=== PATIENT | female | born 1985 | race Caucasian/White ===

== ENCOUNTER 2019-09-15 08:00 | Outpatient (CLI) | payer OTHER ==
[2019-09-15 22:02] LABS: TRICHOMONAS VAGINALIS DNA NEGATIVE (NEGATIVE)
== END 2019-09-15 23:59 | disposition home or self-care (01) ==
LOC: LAB.R 08:00
PROVIDERS: ATTEND Obstetrics & Gynecology
DX: R85.612 Low grade squamous intraepithelial lesion on cytologic smear of anus (LGSIL) (principal)
CPT/HCPCS: 87491; 87591; 87661

== ENCOUNTER 2021-06-01 08:00 | Outpatient (CLI) | payer OTHER ==
[2021-06-01 12:30] LABS: BILIRUBIN,URINE NEGATIVE (NEGATIVE); GLUCOSE, URINE (UA) NEGATIVE (NEGATIVE); KETONES,URINE (UA) NEGATIVE (NEGATIVE); LEUKOCYTE ESTERASE, URINE NEGATIVE (NEGATIVE); NITRITE,URINE POSITIVE (NEGATIVE); OCCULT BLOOD,URINE NEGATIVE (NEGATIVE); PH,URINE 5.5 PH (5.0-7.5); PROTEIN,URINE NEGATIVE (NEGATIVE); UROBILINOGEN,URINE 0.2 (NORMAL) E.U./dL (NORMAL)
[2021-06-01 12:31] LABS: BASOPHILS % (AUTO) 0.6 %; EOSINOPHILS # (AUTO) 0.2 10^3/uL (0.0-0.7); EOSINOPHILS % (AUTO) 3.9 %; HCT - HEMATOCRIT 41.6 % (37.0-47.0); HGB - HEMOGLOBIN 14.3 g/dL (12.0-16.0); LYMPHOCYTES # (AUTO) 1.8 10^3/uL (1.5-3.5); LYMPHOCYTES % (AUTO) 32.9 %; MEAN CORPUSCULAR HEMOGLOBIN 30.5 pg (27.0-31.0); MEAN CORPUSCULAR HGB CONC 34.4 g/dL (32.0-36.0); MEAN CORPUSCULAR VOLUME 88.7 fL (81.0-99.0); MEAN PLATELET VOLUME 10.5 fL (7.9-10.8); MONOCYTES # (AUTO) 0.4 10^3/uL (0.0-1.0); MONOCYTES % (AUTO) 7.1 %; NEUTROPHILS % (AUTO) 55.3 %; PLT - PLATELET COUNT 227 10^3/uL (130-450); RED BLOOD COUNT 4.69 10^6/uL (4.20-5.40); RED CELL DISTRIBUTION WIDTH 11.6 % (12.0-15.0); WHITE BLOOD COUNT 5.4 x10^3/uL (4.8-10.8)
[2021-06-01 12:38] LABS: CLARITY,URINE CLOUDY (CLEAR); WBC,URINE 0-3 /HPF (0-5)
[2021-06-01 12:39] LABS: AMORPHOUS SEDIMENT,UR Moderate /LPF; BACTERIA,URINE Many /HPF (None Seen); RBC,URINE None Seen /HPF (0-5); SQUAMOUS EPITHELIAL CELL,UR RARE Squamous (<= Few)
[2021-06-01 12:58] LABS: THYROID STIMULATING HORMONE 2.26 uIU/mL (0.34-5.60)
[2021-06-01 13:00] LABS: ALBUMIN 4.6 g/dL (3.2-5.5); ALBUMIN/GLOBULIN RATIO 1.7 (1.0-2.2); BILIRUBIN,TOTAL 0.9 mg/dL (0.2-1.0); CREATININE 0.7 mg/dL (0.4-1.0); POTASSIUM 3.9 mmol/L (3.5-5.0); TOTAL PROTEIN 7.3 g/dL (6.7-8.2)
== END 2021-06-01 23:59 | disposition home or self-care (01) ==
LOC: LAB.WCP 08:00
PROVIDERS: ATTEND Physician Assistant
DX: Z00.00 Encounter for general adult medical examination without abnormal findings (principal)
CPT/HCPCS: 36415; 80050; 81001; 87077; 87086; 87181

== ENCOUNTER 2021-08-31 18:23 | Emergency (ER) | payer OTHER ==
[2021-08-31 18:47] LABS: BASOPHILS % (AUTO) 0.4 %; EOSINOPHILS # (AUTO) 0.2 10^3/uL (0.0-0.7); EOSINOPHILS % (AUTO) 1.7 %; HCT - HEMATOCRIT 38.4 % (37.0-47.0); HGB - HEMOGLOBIN 13.5 g/dL (12.0-16.0); LYMPHOCYTES # (AUTO) 2.3 10^3/uL (1.5-3.5); LYMPHOCYTES % (AUTO) 20.5 %; MEAN CORPUSCULAR HEMOGLOBIN 30.8 pg (27.0-31.0); MEAN CORPUSCULAR HGB CONC 35.2 g/dL (32.0-36.0); MEAN CORPUSCULAR VOLUME 87.7 fL (81.0-99.0); MONOCYTES # (AUTO) 0.7 10^3/uL (0.0-1.0); MONOCYTES % (AUTO) 6.3 %; NEUTROPHILS % (AUTO) 70.7 %; PLT - PLATELET COUNT 258 10^3/uL (130-450); RED BLOOD COUNT 4.38 10^6/uL (4.20-5.40); RED CELL DISTRIBUTION WIDTH 11.8 % (12.0-15.0); WHITE BLOOD COUNT 11.3 x10^3/uL (4.8-10.8)
[2021-08-31 18:52] LABS: BILIRUBIN,URINE NEGATIVE (NEGATIVE); GLUCOSE, URINE (UA) NEGATIVE (NEGATIVE); KETONES,URINE (UA) NEGATIVE (NEGATIVE); LEUKOCYTE ESTERASE, URINE NEGATIVE (NEGATIVE); NITRITE,URINE NEGATIVE (NEGATIVE); OCCULT BLOOD,URINE NEGATIVE (NEGATIVE); PH,URINE 7.5 PH (5.0-7.5); PROTEIN,URINE NEGATIVE (NEGATIVE); UROBILINOGEN,URINE 0.2 (NORMAL) E.U./dL (NORMAL)
[2021-08-31 18:55] LABS: CLARITY,URINE CLEAR (CLEAR)
[2021-08-31 18:55] LABS: CREATININE 0.5 mg/dL (0.4-1.0); POTASSIUM 3.5 mmol/L (3.5-5.0)
--- NOTE | 2021-08-31 18:59 | ED Physician Documentation ---
History of Present Illness - Stated complaint Stated Complaint: BLEEDING +PREG - Chief complaint Chief Complaint: Abd Pain - Additonal information Additional information: 36-year-old female presents emergency department for evaluation of vaginal bleeding and cramping in the first trimester . LMP 07/10/2021. G6, . She has not yet established with an OB. Previous pregnancies were delivered vaginally. No fevers. No nausea or vomiting. No dysuria urgency or frequency. Not vaccinated for COVID-19. She thinks she has a hx of a remote COVID infection Review of Systems Constitutional: denies: Fever, Chills Eyes: reports: Reviewed and negative Nose: reports: Reviewed and negative Throat: reports: Reviewed and negative Cardiac: reports: Reviewed and negative Respiratory: reports: Reviewed and negative GI: reports: Reviewed and negative : reports: Reviewed and negative Skin: reports: Reviewed and negative Musculoskeletal: reports: Reviewed and negative PD ED PE NORMAL - General General: Alert and oriented X 3, No acute distress - HEENT HEENT: Atraumatic - Neck Neck: Supple, no meningeal sign, No adenopathy - Cardiac Cardiac: RRR, No murmur - Respiratory Respiratory: No respiratory distress, Clear bilaterally - Abdomen Abdomen: Normal bowel sounds, Soft. No: Non tender - Back Back: No CVA TTP - Derm Derm: Normal color, Warm and dry - Extremities Extremities: No deformity, No tenderness to palpate, Normal ROM s pain Results - Vitals Vitals: Vital Signs - 24 hr 08/31/21 08/31/21 18:27 20:10 Temperature 36.8 C Heart Rate 79 60 Respiratory 14 14 Rate Blood Pressure 144/74 H 111/69 O2 Saturation 100 98 Oxygen O2 Source Room air - Labs Labs: Laboratory Tests 08/31/21 08/31/21 08/31/21 18:35 18:37 18:37 WBC 11.3 H RBC 4.38 Hgb 13.5 Hct 38.4 MCV 87.7 MCH 30.8 MCHC 35.2 RDW 11.8 L Plt Count 258 MPV 10.0 Neut # (Auto) 8.0 H Lymph # (Auto) 2.3 [place] # (Auto) 0.7 Eos # (Auto) 0.2 Baso # (Auto) 0.0 Absolute Nucleated RBC 0.00 Nucleated RBC % 0.0 Sodium Potassium Chloride Carbon Dioxide Anion Gap BUN Creatinine Estimated GFR (MDRD) Glucose Calcium HCG, Quant Urine Color YELLOW Urine Clarity CLEAR Urine pH 7.5 Ur Specific [place] 1.020 Urine Protein NEGATIVE Urine Glucose (UA) NEGATIVE Urine Ketones NEGATIVE Urine Occult Blood NEGATIVE Urine Nitrite NEGATIVE Urine Bilirubin NEGATIVE Urine Urobilinogen 0.2 (NORMAL) Ur Leukocyte Esterase NEGATIVE Ur Microscopic Review NOT INDICATED Urine Culture Comments NOT INDICATED Blood Type O POSITIVE 08/31/21 08/31/21 18:37 18:37 WBC RBC Hgb Hct MCV MCH MCHC RDW Plt Count MPV Neut # (Auto) Lymph # (Auto) [place] # (Auto) Eos # (Auto) Baso # (Auto) Absolute Nucleated RBC Nucleated RBC % Sodium 135 Potassium 3.5 Chloride 99 L Carbon Dioxide 28 Anion Gap 8.0 BUN 11 Creatinine 0.5 Estimated GFR (MDRD) 140 Glucose 89 Calcium 9.0 HCG, Quant 865195.00 Urine Color Urine Clarity Urine pH Ur Specific [place] Urine Protein Urine Glucose (UA) Urine Ketones Urine Occult Blood Urine Nitrite Urine Bilirubin Urine Urobilinogen Ur Leukocyte Esterase Ur Microscopic Review Urine Culture Comments Blood Type - Rads (name of study) OBUS Radiology: Final report received (IUP with positive heart rate measuring at approximately 6 weeks 6 days. Subchorionic hemorrhage measuring 1.8 x 1.7 x 2 cm. Left corpus luteal cyst) PD MEDICAL DECISION MAKING - ED course Complexity details: reviewed results, re-evaluated patient, considered differential, d/w patient, d/w family ED course: Well-appearing 36-year-old female who is in her first trimester of presents the emergency department for lower pelvic pain, cramping and vaginal bleeding. Symptoms began today. G6, . lmp 07/10/21 Screening labs without acute worrisome findings. No bacteriuria. She is Rh+. She has a healthy quant greater than 100,000. OB ultrasound reveals a live IUP 6 weeks 6 days with associated small subchorionic hemorrhage. No findings to suggest ectopic or heterotopic . Patient is hemodynamically stable. She is attempting to establish with OB. Discussed routine return precautions for severe vaginal bleeding, tachycardia fevers uncontrolled vomiting. Departure - Departure Disposition: 01 Home, Self Care Clinical Impression: Threatened Subchorionic hematoma in first trimester Qualifiers: Fetus number: single or unspecified fetus Qualified Code(s): O41.8X10 - Other specified disorders of amniotic fluid and membranes, first trimester, not applicable or unspecified; O46.8X1 - Other antepartum hemorrhage, first trimester Condition: Stable Record reviewed to determine appropriate education?: Yes Instructions: ED Miscarriage Poss Comments: Haley was seen today in the emergency department for vaginal bleeding and spotting in the first trimester of your . Your screening labs are all essentially normal. The ultrasound reveals that you are about 6 weeks 6 days . Fetus has a good heart rate. You do have a small subchorionic hemorrhage. As we discussed at the bedside this is where the placenta can begin to tear away from the uterine wall. This does put you at risk for a miscarriage however many women who have subchorionic hemorrhages will go on to have a normal . It is important you continue to establish with an OB. I do recommend avoidance of any sexual activity until cleared by your OB however routine daily activities should not be limited. If you develop a racing heart rate, have any fainting episodes, severe vaginal bleeding or saturating a menstrual pad every hour for 6 or more hours then p susanjayleen return immediately to the ER for second evaluation.
[2021-08-31 20:37] VITALS: BP 119/72
--- NOTE | 2021-08-31 21:18 | Ultrasound Report ---
PROCEDURE: OB First Trimester w/TV INDICATIONS: vaginal bleeding; llq 1st trimester OUTSIDE/PRIOR DATING DATA: Last menstrual period (LMP): 07/10/2021. LMP-based estimated date of delivery (DG): 04/16/2022. First dating scan (date and location): 08/31/2021. Estimated date of delivery (DG) from first dating scan: 04/20/2022. The below data below was generated using the ultrasound DG of 04/20/2022 TECHNIQUE: Real-time scanning was performed of the fetus and maternal pelvic organs, with image documentation. Endovaginal scanning was also performed to better visualize the fetus and maternal ovaries. COMPARISON: None. FINDINGS: Embryo: Jette-rump length measuring 0.86 cm. Estimated gestational age 6 weeks 6 days. Heart rate: 136 bpm. You've sac is seen. Subchorionic hemorrhage measuring 2 x 1.8 x 1.7 cm. Measurement variability in dating: +/- 4 weeks by LMP, +/- 7 days by mean sac diameter (use before 6 weeks gestation if crown-rump length not able to be measured), +/- 5 days by crown-rump length (6-12 weeks gestation). Maternal organs: Ovaries within normal limits. Left corpus luteum. IMPRESSION: 1. [place] living intrauterine at 6 weeks 6 days based on today's crown-rump length. 2. Small perigestational hemorrhage. Reviewed by: Javier Black MD on 08/31/2021 9:16 PM PDT Approved by: Javier Black MD on 08/31/2021 9:16 PM PDT Station ID: [id number]
== END 2021-08-31 20:38 | disposition home or self-care (01) ==
LOC: ED 18:23
DX: O41.8X10 Other specified disorders of amniotic fluid and membranes, first trimester, not applicable or unspecified (principal); O46.8X1 Other antepartum hemorrhage, first trimester; Z3A.01 Less than 8 weeks gestation of pregnancy
CPT/HCPCS: 36415; 80048; 81001; 81003; 84702; 85025; 86900; 86901; 87086; 99282; 99284

== ENCOUNTER 2022-10-03 09:22 | Outpatient (CLI) | payer OTHER ==
[2022-10-03 11:55] LABS: BASOPHILS % (AUTO) 0.5 %; EOSINOPHILS # (AUTO) 0.3 10^3/uL (0.0-0.7); HCT - HEMATOCRIT 40.2 % (37.0-47.0); HGB - HEMOGLOBIN 13.7 g/dL (12.0-16.0); LYMPHOCYTES # (AUTO) 1.5 10^3/uL (1.5-3.5); LYMPHOCYTES % (AUTO) 24.4 %; MEAN CORPUSCULAR HEMOGLOBIN 30.6 pg (27.0-31.0); MEAN CORPUSCULAR HGB CONC 34.1 g/dL (32.0-36.0); MEAN CORPUSCULAR VOLUME 89.9 fL (81.0-99.0); MEAN PLATELET VOLUME 10.6 fL (7.9-10.8); MONOCYTES # (AUTO) 0.4 10^3/uL (0.0-1.0); MONOCYTES % (AUTO) 6.4 %; NEUTROPHILS # (AUTO) 3.9 10^3/uL (1.5-6.6); NEUTROPHILS % (AUTO) 63.4 %; PLT - PLATELET COUNT 248 10^3/uL (130-450); RED BLOOD COUNT 4.47 10^6/uL (4.20-5.40); WHITE BLOOD COUNT 6.2 x10^3/uL (4.8-10.8)
[2022-10-03 12:28] LABS: THYROID STIMULATING HORMONE 1.07 uIU/mL (0.34-5.60)
[2022-10-03 12:35] LABS: FERRITIN 23.8 ng/mL (11.0-306.8)
[2022-10-03 12:38] LABS: FOLATE 14.57 ng/mL (5.90 - >24.8)
[2022-10-03 15:14] LABS: % IRON SATURATION 44 % (20-50); ALBUMIN 4.6 g/dL (3.2-5.5); ALBUMIN/GLOBULIN RATIO 1.5 (1.0-2.2); ALKALINE PHOSPHATASE 41 IU/L (42-121); ALT ALANINE AMINOTRANSFERASE 19 IU/L (10-60); AST ASPARTATE AMINOTRANSFERASE 19 IU/L (10-42); BILIRUBIN,TOTAL 0.8 mg/dL (0.2-1.0); BUN - BLOOD UREA NITROGEN 19 mg/dL (6-20); CALCIUM 8.7 mg/dL (8.5-10.3); CHOL/HDL RATIO 3.7 (<4.4); CHOLESTEROL 141 mg/dL; CREATININE 0.6 mg/dL (0.4-1.0); GFR - MDRD 113 (>89); GLUCOSE 90 mg/dL (70-100); HDL CHOLESTEROL 38 mg/dL; IRON 176 ug/dL (28-170); TOTAL IRON BINDING CAPACITY 402 ug/dL (250-450); TOTAL PROTEIN 7.7 g/dL (6.7-8.2); TRANSFERRIN 287 mg/dL (192-382); TRIGLYCERIDES 38 mg/dL
[2022-10-03 15:21] LABS: CARBON DIOXIDE - CO2 26 mmol/L (21-32); CHLORIDE 97 mmol/L (101-111); POTASSIUM 3.7 mmol/L (3.5-5.0); SODIUM 139 mmol/L (135-145)
== END 2022-10-03 09:23 | disposition home or self-care (01) ==
LOC: LAB.N 09:22
PROVIDERS: ATTEND Physician Assistant
DX: R53.83 Other fatigue (principal); Z13.9 Encounter for screening, unspecified; Z13.220 Encounter for screening for lipoid disorders; Z13.29 Encounter for screening for other suspected endocrine disorder
CPT/HCPCS: 36415; 80050; 80061; 82607; 82728; 82746; 83540; 83721; 84466

== ENCOUNTER 2024-01-06 18:49 | Outpatient (CLI) | payer OTHER | END 2024-01-06 18:50 | disposition critical access hospital (66) | LOC: EMS 18:49 | DX: I10 Essential (primary) hypertension (principal) | CPT/HCPCS: A0425; A0427 ==

== ENCOUNTER 2024-01-06 19:15 | Emergency (ER) | payer OTHER ==
--- NOTE | 2024-01-06 19:34 | ED Physician Documentation ---
History of Present Illness - Stated complaint Stated Complaint: HAND TINGLING - Chief complaint Chief Complaint: General - Additonal information Additional information: 38-year-old female with history of ADHD on Concerta presents with palpitations. She states she has had poor appetite in the last few days in the setting of stress at home, due to breaking up with her partner. She has not been eating well. She has had tingling in bilateral hands along with cramping of her thumbs bilaterally. In the last few hours, she also an episode of her heart racing. No lightheadedness or syncope. No history of syncope previously. No family history of syncope or sudden cardiac . No fevers, chills, cough, chest or back or abdominal or flank pain, shortness of breath, leg swelling or leg pain, focal numbness or weakness, visual or hearing changes, vomiting, diarrhea, urinary symptoms, or other changes. She is on schedule with her menstrual cycle. No other medications beyond Concerta, which has not been changed in dosing. No other new concerns. History clarified from triage. ROS Constitutional: no fever, no chills Eyes: no visual disturbance, no discharge Ears, Nose, Mouth, Throat: no rhinorrhea, no sore throat Cardiovascular: no chest pain, + palpitations Respiratory: no cough, no shortness of breath Gastrointestinal: no abdominal pain, no vomiting, no diarrhea Genitourinary: no dysuria, no hematuria Musculoskeletal: no back pain, no neck stiffness Skin: no rash, no wound Neurological: no focal weakness, no focal numbness PD PAST MEDICAL HISTORY - Past Medical History Past Medical History: Yes - Past Surgical History Past Surgical History: No - Present Medications Home Medications: Ambulatory Orders Medication Instructions Recorded Confirmed Magnesium Oxide 400 mg PO DAILY #2 tablet 01/06/24 Potassium Chloride 40 meq PO DAILY 2 Days #4 tab 01/06/24 - Allergies Allergies/Adverse Reactions: Allergies Allergy/AdvReac Type Severity Reaction Status Date / Time No Known Drug Allergies Allergy Verified 01/06/24 19:26 - Social History Does the pt smoke?: No Smoking Status: Never smoker Does the pt drink ETOH?: Yes - Immunizations Immunizations are current?: Yes - POLST Patient has POLST: No PD ED PE NORMAL - Free text exam Free text exam: Const: no acute distress, non toxic appearing; calm, conversant, pleasant Eyes: PERRLA, EOMI ENT: mucous membranes moist Neck: supple, non-tender Resp: no respiratory distress, clear to auscultation bilaterally Card: regular rate and rhythm, no murmurs Abd: non tender diffusely, no rigidity or rebound or guarding Back: no T or L spine tenderness, no CVA tenderness bilaterally Extrem: no deformities, no swelling bilateral lower extremities, 2+ distal pulses all extremities Neuro: ANOx4, shearing machine feeder 2-12 intact, intact sensation and strength all extremities, normal coordination, no clonus BLE Skin: no rash, warm and dry Results - Vitals Vitals: Vital Signs - 24 hr 01/06/24 01/06/24 01/06/24 19:27 19:44 20:48 Temperature 36.3 C L Heart Rate 79 73 81 Respiratory 16 16 16 Rate Blood Pressure 168/96 H 144/96 H 142/96 H O2 Saturation 99 100 99 Oxygen O2 Source Room air - EKG (time done) EKG NSR without acute ischemia or immediately concerning interval prolongation on my review. No WPW, long QT, [place], HOCM. Partial IVCD noted. EKG releavant findings:: EKG personally interpreted by author of this note. Relevant findings are: - Labs Labs: Laboratory Tests 01/06/24 01/06/24 19:40 19:40 WBC 7.3 RBC 4.56 Hgb 13.9 Hct 40.8 MCV 89.5 MCH 30.5 MCHC 34.1 RDW 11.5 L Plt Count 302 MPV 9.3 Neut # (Auto) 4.8 Lymph # (Auto) 1.8 [place] # (Auto) 0.5 Eos # (Auto) 0.1 Baso # (Auto) 0.0 Absolute Nucleated RBC 0.00 Nucleated RBC % 0.0 Sodium 135 Potassium 3.2 L Chloride 100 L Carbon Dioxide 26 Anion Gap 9.0 BUN 14 Creatinine 0.7 Estimated GFR (MDRD) 94 Glucose 126 H Calcium 9.0 Magnesium 1.4 L Total Bilirubin 0.6 AST 21 ALT 23 Alkaline Phosphatase 38 L Total Protein 7.2 Albumin 4.6 Globulin 2.6 Albumin/Globulin Ratio 1.8 TSH 1.80 Serum HCG, Qual NEGATIVE PD Medical Decision Making - ED course ED course: This patients presentation is most suggestive of electrolyte derangements leading to tingling in bilateral hands, intermittent cramping, benign palpitations such as PVCs. She is well-appearing, currently comfortable, fully neurovascularly intact, with no pain or shortness of breath or clear infectious signs. Poor p.o. intake could be contributory. Thyroid derangement is less likely. Malignant dysrhythmia such as ventricular tachycardia is extremely unlikely clinically. I am giving fluids will obtain EKG, CBC, CMP, magnesium, TSH, hCG and closely reassessing. Labs notable for mild hypokalemia and hypomagnesemia. TSH WNL. HCG negative. Remainder of labs overall reassuring. EKG reassuring as noted. Patient had very reassuring remainder of her ER course. Symptoms improved. She does note mild intermittent headache, without sudden or severe features. No other new concerns. I offered tylenol, which she declined. I repeated her full neurovascular exam with nurse at bedside as well, and she is fully neurovascularly intact. Her repeat neurologic exam follows: Neuro: ANOx4. shearing machine feeder 2-12 intact. No rotatory or vertical nystagmus. Normal tone all extremities. Sensation intact to light touch all extremities. 5/5 motor strength all extremities. No pronator drift. Negative Romberg. Normal gait. No dysarthria. No neglect. Grossly normal cognition. This presentation is not consistent with stroke, focal neurologic deficit or SAH. Rather, her presentation and workup are highly consistent with electrolyte derangements. In addition to giving her 40 millequivalents of potassium chloride and 400 mg of magnesium oxide p.o. here, I am prescribing her 2 additional days of 40 potassium chloride and 400 magnesium oxide daily. She understands plan, return precautions, and outpatient repeat labs, stating she has a primary doctor. No other new concerns. She appears well. Results of work up today were discussed with the patient. Patient ambulatory and tolerating PO. Repeat exams and vital signs reassuring; BP is elevated in setting of intermittent anxiety but is suitable for discharge with outpatient follow up, without clinical evidence of hypertensive emergency here. Patient questions answered and plan reviewed. Strong return precautions given. Patient discharged. Departure - Departure Disposition: 01 Home, Self Care Clinical Impression: Palpitations, Hypokalemia Condition: Good Instructions: Hypokalemia Dc Prescriptions: Magnesium Oxide 400 mg PO DAILY #2 tablet Potassium Chloride 40 meq PO DAILY 2 Days #4 tab Comments: It was a pleasure taking care of you today. It is important to fully read and understand the below. Please ask us if you have any questions. We think the most likely cause of your symptoms may be low potassium and magnesi um. Please take potassium and magnesium as prescribed and see a doctor within 3- 5 days to be reassessed. No tests or assessments are perfect, and your condition could roving changer time. If your symptoms change or worsen, it is very important you immediately seek medical care. If you have any new or worsening pain, lightheadedness or passing out, feeling your heart beating funny, shortness of breath, fever, vomiting, confusion, numbness, weakness, or anything else that concerns you, please immediately seek medical care. If you have been prescribed any medications: please read the drug package inserts on how to properly use the medication and any potential side effects. If you had labs (blood tests) or imaging (CT scan or x-rays) done during your visit: please follow up on the results of these with your primary care doctor, as discussed. In addition, please know the results we received today may be preliminary. Our usual practice is to follow up on tests within a few days of a patient's discharge from the Emergency Department and notify you of any changes. These may lead to changes to your treatment plan. However, the best way to obtain and interpret these test results is through your Primary Care Provider. If you need to update your contact information, please stop by the front maker lock[facility]ch and alert the Registration personnel before you leave the Emergency Department. Thank you for the opportunity to participate in your healthcare. We are always here and happy to see you in the future. Forms: PCP List Discharge Date/Time: 01/06/24 21:02
[2024-01-06] MEDS: SODIUM CHLORIDE 0.9% 1,000 ML IV STA (19:42)
[2024-01-06 19:44] LABS: BASOPHILS % (AUTO) 0.4 %; EOSINOPHILS # (AUTO) 0.1 10^3/uL (0.0-0.7); EOSINOPHILS % (AUTO) 1.8 %; HCT - HEMATOCRIT 40.8 % (37.0-47.0); HGB - HEMOGLOBIN 13.9 g/dL (12.0-16.0); LYMPHOCYTES # (AUTO) 1.8 10^3/uL (1.5-3.5); LYMPHOCYTES % (AUTO) 24.8 %; MEAN CORPUSCULAR HEMOGLOBIN 30.5 pg (27.0-31.0); MEAN CORPUSCULAR HGB CONC 34.1 g/dL (32.0-36.0); MEAN CORPUSCULAR VOLUME 89.5 fL (81.0-99.0); MEAN PLATELET VOLUME 9.3 fL (7.9-10.8); MONOCYTES # (AUTO) 0.5 10^3/uL (0.0-1.0); MONOCYTES % (AUTO) 6.9 %; NEUTROPHILS # (AUTO) 4.8 10^3/uL (1.5-6.6); NEUTROPHILS % (AUTO) 65.8 %; PLT - PLATELET COUNT 302 10^3/uL (130-450); RED BLOOD COUNT 4.56 10^6/uL (4.20-5.40); RED CELL DISTRIBUTION WIDTH 11.5 % (12.0-15.0); WHITE BLOOD COUNT 7.3 x10^3/uL (4.8-10.8)
[2024-01-06 20:00] LABS: ALBUMIN 4.6 g/dL (3.2-5.5); ALBUMIN/GLOBULIN RATIO 1.8 (1.0-2.2); ALKALINE PHOSPHATASE 38 IU/L (42-121); ALT ALANINE AMINOTRANSFERASE 23 IU/L (10-60); AST ASPARTATE AMINOTRANSFERASE 21 IU/L (10-42); BILIRUBIN,TOTAL 0.6 mg/dL (0.2-1.0); BUN - BLOOD UREA NITROGEN 14 mg/dL (6-20); CARBON DIOXIDE - CO2 26 mmol/L (21-32); CHLORIDE 100 mmol/L (101-111); CREATININE 0.7 mg/dL (0.6-1.3); GFR - MDRD 94 (>89); GLUCOSE 126 mg/dL (74-104); MAGNESIUM 1.4 mg/dL (1.7-2.3); POTASSIUM 3.2 mmol/L (3.5-4.5); SODIUM 135 mmol/L (135-145); TOTAL PROTEIN 7.2 g/dL (6.4-8.9)
[2024-01-06 20:07] LABS: HCG,QUALITATIVE BLOOD NEGATIVE
[2024-01-06] MEDS: MAGNESIUM OXIDE 400 MG TABLET PO ONE (20:43)
[2024-01-06] MEDS: POTASSIUM CHLORIDE 20 MEQ TABLET PO ONE (20:44)
[2024-01-06 20:50] VITALS: BP 142/96; O2SAT 99
== END 2024-01-06 21:02 | disposition home or self-care (01) ==
LOC: EDUNIT# → ED 19:15
DX: R00.2 Palpitations (principal); E83.42 Hypomagnesemia; E87.6 Hypokalemia
CPT/HCPCS: 36415; 80050; 83735; 84703; 93005; 99283; 99284; A9270